=== PATIENT | female | born 1990 | race Caucasian/White ===

== ENCOUNTER 2016-12-12 14:50 | Emergency (ER) | payer OTHER ==
[~2016-12-12] VITALS: Ht 160 cm; Wt 54.5 kg
[~2016-12-12 14:50] MED LIST: COLACE 100100 MG/CAP PO; MACROBID 1100 MG/CAP PO; NO HOME MEDICATIONS; ORSYTHIA 0.02 M1 TAB PO; ULTRAM 50MG TAB50 MG PO; ZITHROMAX Z PA250 MG PO
[2016-12-12 15:03] VITALS: BP 134/67; TEMP 96.4
[2016-12-12 16:15] VITALS: PULSE 104
== END 2016-12-12 16:16 | disposition home or self-care (01) ==
LOC: COL.ER 14:50
DX: S93.401A Sprain of unspecified ligament of right ankle, initial encounter (principal); X50.1XXA Overexertion from prolonged static or awkward postures, initial encounter

== ENCOUNTER → 2021-10-30 | Outpatient (CLI) | payer OTHER | LOC: COL.RAD 07:55 | DX: R10.13 Epigastric pain (principal); R11.0 Nausea; R68.81 Early satiety ==

== ENCOUNTER → 2021-11-14 | Outpatient (CLI) | payer OTHER | LOC: COL.RAD 11-10 10:00 | DX: R11.0 Nausea (principal); R10.13 Epigastric pain | CPT/HCPCS: A9537; J2805 ==

== ENCOUNTER 2022-05-21 17:13 | Emergency (ER) | payer OTHER ==
[~2022-05-21] VITALS: Ht 175.3 cm; Wt 72.7 kg
[2022-05-21 17:33] VITALS: TEMP 97.9
[2022-05-21 18:20] VITALS: BP 115/49; PULSE 156
== END 2022-05-21 18:20 | disposition short-term general hospital (02) ==
LOC: COL.ER 17:13
DX: S09.90XA Unspecified injury of head, initial encounter (principal); R41.82 Altered mental status, unspecified; V89.2XXA Person injured in unspecified motor-vehicle accident, traffic, initial encounter; Y92.410 Unspecified street and highway as the place of occurrence of the external cause
CPT/HCPCS: J1170; J3010

== ENCOUNTER 2022-11-24 07:52 | Emergency (ER) | payer OTHER ==
[~2022-11-24] VITALS: Ht 160 cm; Wt 52.7 kg
[2022-11-24 08:00] VITALS: TEMP 98.1
[2022-11-24 08:40] LABS: BASO % 0.3 % (0.0-2.0); EOS # 0.1 K/mm3 (0.0-0.7); GRAN # 2.4 K/mm3 (1.4-6.5); HEMATOCRIT 38.5 % (37.0-47.0); HEMOGLOBIN 12.3 g/dl (12.5-16.0); LYMPH % 51.7 % (20.0-51.0); MEAN CELL VOLUME 83 fl (80.0-100.0); MEAN CORPUSCULAR HEMOGLOBIN 27 pg (27-31); MEAN CORPUSCULAR HGB CONC 32 g/dl (33.0-37.0); MEAN PLATELET VOLUME 9.6 fl (7.4-10.4); MONO # 0.4 K/mm3 (0.1-0.6); PLATELET COUNT 382 K/mm3 (130-400); RED BLOOD COUNT 4.65 M/mm3 (4.10-5.30); REDCELL DISTRIBUTION WIDTH-CV 16.8 % (11.5-14.5)
[2022-11-24 08:58] LABS: ALBUMIN 3.9 gm/dL (3.5-5.0); BILIRUBIN,TOTAL 0.4 mg/dL (0.2-1.2); CALCIUM 9.7 mg/dL (8.4-10.2); CREATININE, serum 0.69 mg/dL (0.57-1.11); TOTAL PROTEIN 8.7 gm/dL (6.2-8.1)
[2022-11-24 09:09] LABS: POTASSIUM 2.9 mmol/L (3.5-4.5)
[2022-11-24 10:47] LABS: TRICYCLIC ANTIDEPRESS URINE NEGATIVE
[2022-11-24] MEDS ORDERED: JUNEL FE 1.5/301 TAB PO (11:48)
--- NOTE | 2022-11-24 12:53 | NUR ---
SW met with patients parents per request. They express their desire to help the patient but do not know how. Lenghty conversation had. Drug and alcohol resource list provided to the patients mother. SW contacted the CSU and patient is able to return once she is sober.
[2022-11-24 17:02] VITALS: BP 106/81; PULSE 97
== END 2022-11-24 17:02 | disposition home or self-care (01) ==
LOC: COL.ER 07:52
PROVIDERS: Personal Emergency Response Attendant
DX: F10.129 Alcohol abuse with intoxication, unspecified (principal); F32.A Depression, unspecified; E87.6 Hypokalemia; F17.210 Nicotine dependence, cigarettes, uncomplicated; Z28.311 Partially vaccinated for COVID-19

== ENCOUNTER → 2023-07-27 | Outpatient (CLI) | payer SELFPAY ==
[~2023-07-27] MED LIST changes: +FOLIC ACID 11 MG/TA1 PO; +JUNEL FE 1.5/301 TAB PO; +K-DUR20 MEQ PO; +MAG-OX 400400 MG/TAB PO; +MULTIPLE VITAMI1 CAP PO; +MYLANTA 150 ML150 M1 PO; +SPORANOX100 MG PO; +THIAMINE 1100 MG/TAB PO; +ZOLOFT 25MG25 MG PO
[2023-07-27 11:29] LABS: COLLECTION METHOD CLEAN CATCH
[2023-07-27 11:37] LABS: BASO # 0.1 K/mm3 (0.0-0.2); BASO % 0.3 % (0.0-2.0); EOS % 0.1 % (0.0-4.0); GRAN # 19.3 K/mm3 (1.4-6.5); GRAN % 88.9 % (42.2-75.2); LYMPH % 4.8 % (20.0-51.0); MEAN CELL VOLUME 96 fl (80.0-100.0); MEAN CORPUSCULAR HGB CONC 34 g/dl (33.0-37.0); MEAN PLATELET VOLUME 10.5 fl (7.4-10.4); MONO # 1.1 K/mm3 (0.1-0.6); MONO % 5.1 % (1.7-9.3); PLATELET COUNT 280 K/mm3 (130-400); RED BLOOD COUNT 3.06 M/mm3 (4.10-5.30); REDCELL DISTRIBUTION WIDTH-CV 17.6 % (11.5-14.5)
[2023-07-27 12:04] LABS: URINE APPEARANCE Hazy (CLEAR/HAZY); URINE COLOR Amber (YELLOW)
[2023-07-27 12:05] LABS: PH 5.5 (5.0-8.5); URINE BLOOD TRACE-LYSED (NEGATIVE); URINE GLUCOSE TRACE (NEGATIVE); URINE KETONE 1+ (NEGATIVE); URINE NITRATE Negative (NEGATIVE); URINE PROTEIN(semi-quant) 1+ (NEGATIVE)
[2023-07-27 12:06] LABS: URINE BACTERIA Rare /hpf (NONE SEEN)
[2023-07-27 12:11] LABS: ALANINE AMINOTRANSFERASE 23 U/L (0-55); ALBUMIN 1.6 gm/dL (3.5-5.0); ALKALINE PHOSPHATASE 136 U/L (40-150); AMYLASE 60 U/L (25-125); ANION GAP 17 mmol/L (7-16); AST,SGOT 130 U/L (5-34); BILIRUBIN,TOTAL 17.8 mg/dL (0.2-1.2); BLOOD UREA NITROGEN 16 mg/dL (7-19); CALCIUM 8.1 mg/dL (8.4-10.2); CARBON DIOXIDE 19 mmol/L (22-29); CHLORIDE 95 mmol/L (98-107); CREATININE, serum 1.51 mg/dL (0.57-1.11); GLUCOSE 99 mg/dL (70-99); LIPASE 38 U/L (8-78); MAGNESIUM 1.3 mg/dL (1.6-2.6); PHOSPHOROUS 5.1 mg/dL (2.3-4.7); POTASSIUM 4.2 mmol/L (3.5-4.5); SODIUM 131 mmol/L (136-145); TOTAL PROTEIN 7.8 gm/dL (6.2-8.1)
[2023-07-27 12:15] LABS: HEMATOCRIT 29.4 % (37.0-47.0); HEMOGLOBIN 9.9 g/dl (12.5-16.0); MEAN CORPUSCULAR HEMOGLOBIN 32 pg (27-31)
[2023-07-27 12:37] LABS: BILIRUBIN,DIRECT 12.3 mg/dL (0.0-0.5); HCG,QUANTITATIVE < 1 mIU/mL
== END ==
LOC: COL.LAB 10:45
PROVIDERS: Family Medicine
DX: K70.9 Alcoholic liver disease, unspecified (principal)

== ENCOUNTER 2024-05-16 15:45 | Outpatient (RCR) | payer MEDICAID | END 2024-05-17 | disposition home or self-care (01) | LOC: WSPT | DX: M25.561 Pain in right knee (principal); M25.562 Pain in left knee; M25.572 Pain in left ankle and joints of left foot; M25.571 Pain in right ankle and joints of right foot ==

== ENCOUNTER 2024-05-31 15:45 | Outpatient (RCR) | payer MEDICAID | END 2024-06-17 | disposition home or self-care (01) | LOC: WSC | DX: M25.50 Pain in unspecified joint (principal) ==